=== PATIENT | female | born 1985 | race Two or more races ===

== ENCOUNTER 2018-03-23 16:46 | Emergency (ER) | payer BC, OTHER ==
--- NOTE | 2018-03-23 16:55 | EDPHY ---
H & P Time Seen by Provider: 03/23/18 16:47 HPI/ROS: CHIEF COMPLAINT: Left elbow injury possible dislocation HISTORY OF PRESENT ILLNESS: 32-year-old [id number] female arrives via ambulance from [facility] complaining of isolated left elbow pain. She was snowboarding at low speed, fell onto her left elbow felt immediate pain. , unable to move. Splinted by life skills trainer. [place] need extrication. She is visiting from [facility], returning in 2 days. Denies: Head injury, midline C-spine pain, peripheral paresthesia, weakness, numbness, left upper extremity paresthesias, shoulder pain, back pain, abdominal pain, nausea, vomiting. REVIEW OF SYSTEMS: 10 systems reviewed and negative with the exception of the elements mentioned in the history of present illness PAST MEDICAL/SURGICAL HISTORY: no anticoagulant use, no relevant medical/ surgical history SOCIAL HISTORY: Nonsmoker visiting from the ER PHYSICAL EXAM 1) GENERAL: Well-developed, well-nourished, alert and oriented. Appears to be in no acute distress as long she is not moving the elbow. Answering questions appropriately. 2) HEAD: Normocephalic, atraumatic 3) HEENT: Pupils equal, round, reactive to light bilaterally. 4) NECK: No cervical collar is on. Posterior cervical spine is nontender, no stepoff, no effusion. Full range of motion which does not elicit any midline cervical spine pain, no posterior midline tenderness, no step-off. 5) LUNGS: Clear to auscultation bilaterally, no wheezes, no rhonchi, no retractions. No obvious signs of trauma. No chest wall pain. No flaring, no grunting. Moving symmetrically. No crepitus. 6) HEART: [Regular rate and rhythm, 7) ABDOMEN: No guarding, no rebound, no focal tenderness, no peritoneal signs, no signs of trauma, no ecchymosis 8) MUSCULOSKELETAL: Left upper extremity: Posterior mireya splint in place, taken down revealing intact skin with step-off consistent with dislocation. Proximally distally nontender.. Radial ulnar median nerve function intact distally. Brisk pulses distally. Soft compartments. Brisk capillary refill. Otherwise, Moving all extremities, no focal areas of tenderness, no obvious trauma. 9) BACK: No midline vertebral tenderness, no fluctuance, no step-off, no obvious trauma, no visual or palpable abnormality. 10) SKIN: No laceration. No abrasion DIFFERENTIAL DIAGNOSIS: In no particular order including but not limited to fracture, sprain, strain, dislocation. Constitutional: Initial Vital Signs Temperature (C) 36.9 C 03/23/18 16:51 Heart Rate 92 03/23/18 16:51 Respiratory Rate 18 03/23/18 16:51 Blood Pressure 96/72 L 03/23/18 16:51 O2 Sat (%) 96 03/23/18 16:51 O2 Delivery Mode Room Air Allergies/Adverse Reactions: No Known Allergies Allergy (Unverified 03/23/18 16:50) Home Medications: Medication Instructions Recorded Hydrocodone/APAP 5/325 [Deep Water 1 tab PO Q6 PRN #7 tab 03/23/18 5/325 (RX)] Medical Decision Making - Diagnostics Imaging Results: Imaging Impressions Elbow X-Ray 03/23/18 16:50 Impression: Dorsal elbow dislocation. Elbow X-Ray 03/23/18 17:16 Impression: Status post closed reduction with anatomic realignment of the elbow and evidence of an elbow joint effusion, but no fracture observed. Images reviewed myself Procedures: 5:16 p.m.: Procedure: Dislocation reduction. . The dislocation of the left elbow was reduced using traction and counter traction technique without complications. Post reduction the patient's neurovascular exam is normal. Post reduction x-ray demonstrates reduction of the joint to the anatomic position. The procedure was performed by myself. Procedure: Splint A posterior Ortho Glass long arm splint was applied by ER certified endoscopy technician. After application of the splint I returned and re-examined the patient. The splint was adequately immobilizing the joint and distal to the splint the patient's circulation and sensation were intact. Patient shows no signs of compartment syndrome. Was given orthopedic precautions. ED Course/Re-evaluation: 5:30 p.m.: Re-evaluation after reduction care remains neurovascularly intact, brisk pulses, no paresthesias. Awaiting postreduction x-ray. Plan will be discharge home with x-rays and follow-up orthopedics and she returns to [place]. She has been informed the limitations of x-ray notably that non osseous injury is not ruled out. Care of patient under supervision of secondary supervising physician Dr Chris Coronado with whom I discussed case. 6:10 p.m.: Re-evaluation, discussed her post reduction x-rays showing anatomic alignment. She remains neurovascularly intact. She will be discharged, given copies of her x-rays, follow up with orthopedic surgeon in [place]. Given my usual and customary orthopedic precautions and instructions. Questions and concerns addressed by myself. - Data Points Medications Given: Discontinued Medications Hydromorphone HCl (Dilaudid) 0.5 mg IVP EDNOW ONE Stop: 03/23/18 17:16 Last Admin: 03/23/18 17:18 Dose: 0.5 mg Departure - Departure Disposition: Home, Routine, Self-Care Clinical Impression: Snowboarding accident Qualifiers: Encounter type: initial encounter Qualified Code(s): V00.318A - Other snowboard accident, initial encounter Dislocation of left elbow Qualifiers: Encounter type: initial encounter Qualified Code(s): S53.105A - Unspecified dislocation of left ulnohumeral joint, initial encounter Condition: Good Instructions: Elbow Dislocation (ED) Additional Instructions: Return to the ER immediately if you experience discoloration, have worsening pain, numbness, tingling, or any other symptoms that concern you. If you received x-rays in the emergency department today, be advised, that ligamentous , tendon, muscular, and other non-bony injury cannot be fully ruled out. Try to keep your affected extremity elevated above the level of your chest, and keep cold packs on the affected area, for the next 48 hours. Referrals: Yvon Mccrary MD [Medical Doctor] - 2-3 days, call for appt. (You may also follow up with an orthopedic surgeon in [place].) Prescriptions: Hydrocodone/APAP 5/325 [Deep Water 5/325 (RX)] 1 tab PO Q6 PRN #7 tab PRN Reason: Pain, Severe
[2018-03-23] MEDS ORDERED: HYDROmorphONE/DILAUDID 1 MG/ML INJ IVP ONE (17:15)
[2018-03-23 18:48] VITALS: BP 114/60
== END 2018-03-23 18:48 | disposition home or self-care (01) ==
PROC: 0RSMXZZ Reposition Left Elbow Joint, External Approach (ICD-10-PCS; principal; 2018-03-23)
DX: S53.105A Unspecified dislocation of left ulnohumeral joint, initial encounter (principal); Y93.23 Activity, snow (alpine) (downhill) skiing, snowboarding, sledding, tobogganing and snow tubing; V00.311A Fall from snowboard, initial encounter; Y92.838 Other recreation area as the place of occurrence of the external cause
CPT/HCPCS: 96374; A4565; J1170